=== PATIENT | female | born 1965 ===

== ENCOUNTER 2018-06-20 17:53 | Emergency (ER) | payer BC ==
[2018-06-20] MEDS ORDERED: Sodium Chloride 0.9% 2.5 ML Syringe FLUSH PRN (18:30)
[2018-06-20] MEDS ORDERED: Sodium Chloride 0.9% 10 ML Syringe FLUSH PRN (18:30)
[2018-06-20] MEDS ORDERED: Sodium Chloride 0.9% 1,000 ML IV ONE (18:30)
[2018-06-20] MEDS ORDERED: Hyoscyamine 0.125 MG Tab.SL SL ONE (18:30)
[2018-06-20] MEDS ORDERED: Famotidine 20 MG/2 ML SDV IVPUSH ONE (18:31)
--- NOTE | 2018-06-20 18:38 | EDM.PDOC ---
ED HPI GENERAL MEDICAL PROBLEM - General Chief Complaint: ENT Problem Stated Complaint: TROUBLE SWALLOWING, THROAT SWELLING Time Seen by Provider: 06/20/18 18:19 Source of Information: Reports: Patient History Limitations: Reports: No Limitations - History of Present Illness INITIAL COMMENTS - FREE TEXT/NARRATIVE: History of present illness: []Patient has progressive worsening of her ability to swallow for the last 6 weeks. Patient has not had any vomiting, focal deep breathing abdominal or chest pain. She was seen in [place] emergency room on June 16 when she was picking up her son from college after choking on a milkshake. They did a soft neck CT, an esophagram, CBC, chemistry, sedimentation rate, CRP that showed mild inflammation of her esophagus but no mass or obstruction according to the patient. She was also prescribed omeprazole however did not fill it because she cannot swallow the pill. She followed up with Dr. Pearson this week who has scheduled her for an EGD. Today she tried to eat food and could not tolerate a pea-sized bite of food choking. Review of systems: As per history of present illness and below otherwise all systems reviewed and negative. Past medical history: As per history of present illness and as reviewed below otherwise noncontributory. Surgical history: As per history of present illness and as reviewed below otherwise noncontributory. Social history: No reported history of drug or alcohol abuse. Family history: As per history of present illness and as reviewed below otherwise noncontributory. Physical exam: General: Well developed, well nourished in NAD HEENT: Atraumatic, normocephalic, pupils reactive, negative for conjunctival pallor or scleral icterus, mucous membranes moist, throat clear no erythema or exudate, neck supple, nontender, trachea midline. No neck masses, no stridor Lungs: Clear to auscultation, breath sounds equal bilaterally, chest nontender. Heart: S1S2, regular, negative for clicks, rubs, or JVD. Abdomen: NABS, Soft, nondistended, nontender. Negative for masses or hepatosplenomegaly. Negative for costovertebral tenderness. Pelvis: Stable nontender. Genitourinary: Deferred. Rectal: Deferred. Extremities: Atraumatic, negative for cords or calf pain. Neurovascular unremarkable. Neuro: Awake, alert, oriented. Cranial nerves II through XII unremarkable. Cerebellum unremarkable. Motor and sensory unremarkable throughout. Exam nonfocal. Skin:warm and dry Diagnostics: CBC, chemistry, TSH Therapeutics: IV hydration, Pepcid IV, Levsin ED Course: Improved Impression: Dysphasia Prescriptions: Levsin, Zofran Plan: Keep appointment for EGD as scheduled return if symptoms worsen or change. Definitive disposition and diagnosis as appropriate pending reevaluation and review of above. 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: - Infectious Disease History Infectious Disease History: Reports: Chicken Pox - Past Surgical History GI Surgical History: Reports: Cholecystectomy Female Surgical History: Reports: Hysterectomy Social & Family History - Family History Family Medical History: Noncontributory Cardiac: Reports: GA Other Cardiac Family History: [facility] Oncologic: Reports: Hodgkin's Lymphoma - Tobacco Use Smoking Status *Q: Never Smoker - Caffeine Use Caffeine Use: Reports: Coffee - Recreational Drug Use Recreational Drug Use: No ED ROS ENT - Review of Systems Review Of Systems: ROS reveals no pertinent complaints other than HPI. (History of present illness) ED EXAM, ENT - Physical Exam Exam: See Below (See history of present illness) Course - Vital Signs Last Recorded V/S: Last Vital Signs Temp 98.3 F 06/20/18 18:08 Pulse 65 06/20/18 20:10 Resp 18 06/20/18 20:10 BP 102/54 L 06/20/18 20:10 Pulse Ox 99 06/20/18 20:10 - Orders/Labs/Meds Orders: Active Orders 24 hr Category Date Time Status Saline Lock Insert [OM.PC] Stat Oth 06/20/18 18:30 Ordered Labs: Laboratory Tests 06/20/18 06/20/18 Range/Units 19:00 19:00 WBC 9.85 (4.0-11.0) K/uL RBC 4.39 (4.30-5.90) M/uL Hgb 12.4 (12.0-16.0) g/dL Hct 38.6 (36.0-46.0) % MCV 87.9 (80.0-98.0) fL MCH 28.2 (27.0-32.0) pg MCHC 32.1 (31.0-37.0) g/dL RDW Std Deviation 40.6 (28.0-62.0) fl RDW Coeff of Arnulfo 13 (11.0-15.0) % Plt Count 324 (150-400) K/uL MPV 10.40 (7.40-12.00) fL Neut % (Auto) 72.3 (48.0-80.0) % Lymph % (Auto) 20.6 (16.0-40.0) % [place] % (Auto) 6.6 (0.0-15.0) % Eos % (Auto) 0.3 (0.0-7.0) % Baso % (Auto) 0.2 (0.0-1.5) % Neut # (Auto) 7.1 H (1.4-5.7) K/uL Lymph # (Auto) 2.0 (0.6-2.4) K/uL [place] # (Auto) 0.7 (0.0-0.8) K/uL Eos # (Auto) 0.0 (0.0-0.7) K/uL Baso # (Auto) 0.0 (0.0-0.1) K/uL Nucleated RBC % 0.0 /100WBC Nucleated RBCs # 0 K/uL Sodium 139 (136-145) mmol/L Potassium 4.1 (3.5-5.1) mmol/L Chloride 104 (98-107) mmol/L Carbon Dioxide 23.9 (21.0-32.0) mmol/L BUN 9 (7.0-18.0) mg/dL Creatinine 0.7 (0.6-1.0) mg/dL Est Cr Clr Drug Dosing 90.38 mL/min Estimated GFR (MDRD) > 60.0 ml/min Glucose 98 (74-106) mg/dL Calcium 9.1 (8.5-10.1) mg/dL Total Bilirubin 0.3 (0.2-1.0) mg/dL AST 8 L (15-37) IU/L ALT 11 L (14-63) IU/L Alkaline Phosphatase 74 (46-116) U/L Total Protein 7.1 (6.4-8.2) g/dL Albumin 4.0 (3.4-5.0) g/dL Globulin 3.1 (2.6-4.0) g/dL Albumin/Globulin Ratio 1.3 (0.9-1.6) TSH 3rd Generation 2.32 (0.36-3.74) uIU/mL Meds: Medications Discontinued Medications Generic Name Dose Route Start Last Admin Trade Name Freq PRN Reason Stop Dose Admin Famotidine 20 mg 06/20/18 18:31 06/20/18 18:57 Pepcid IVPUSH 06/20/18 18:32 20 mg ONETIME ONE Administration Hyoscyamine 0.125 mg 06/20/18 18:30 06/20/18 18:57 Hyomax-Sl SL 06/20/18 18:31 0.125 mg ONETIME ONE Administration Sodium Chloride 1,000 mls @ 999 mls/hr 06/20/18 18:30 06/20/18 18:56 Normal Saline IV 06/20/18 19:30 999 mls/hr .Bolus ONE Administration Sodium Chloride 10 ml 06/20/18 18:30 Saline Flush FLUSH ASDIRECTED PRN Keep Vein Open Sodium Chloride 2.5 ml 06/20/18 18:30 Saline Flush FLUSH ASDIRECTED PRN Keep Vein Open Departure - Departure Time of Disposition: 19:32 Disposition: Home, Self-Care 01 Condition: Good Clinical Impression: Esophageal spasm - Discharge Information *PRESCRIPTION DRUG MONITORING PROGRAM REVIEWED*: No *COPY OF PRESCRIPTION DRUG MONITORING REPORT IN PATIENT PRINCESS: No Prescriptions: Hyoscyamine [Hyomax-SL] 0.125 mg SL Q4H PRN #20 tab.sl PRN Reason: Pain Ondansetron [Zofran ODT] 4 mg PO Q6H PRN #20 tab.dis PRN Reason: Nausea Instructions: Esophageal Spasm Referrals: Otf Pearson MD [Primary Care Provider] - Forms: ED Department Discharge Additional Instructions: The following information is given to patients seen in the emergency department who are being discharged to home. This information is to outline your options for follow-up care. We provide all patients seen in our emergency department with a follow-up referral. The need for follow-up, as well as the timing and circumstances, are variable depending upon the specifics of your emergency department visit. If you don't have a primary care physician on staff, we will provide you with a referral. We always advise you to contact your personal physician following an emergency department visit to inform them of the circumstance of the visit and for follow-up with them and/or the need for any referrals to a consulting specialist. The emergency department will also refer you to a specialist when appropriate. This referral assures that you have the opportunity for follow-up care with a specialist. All of these measure are taken in an effort to provide you with optimal care, which includes your follow-up. Under all circumstances we always encourage you to contact your private physician who remains a resource for coordinating your care. When calling for follow-up care, please make the office aware that this follow-up is from your recent emergency room visit. If for any reason you are refused follow-up, please contact the [facility] at and asked to speak to the emergency department charge nurse. Take meds as directed, follow up with your primary care physician, return to ER if symptoms worsen or change. [facility] [address] [place] [id number] - My Orders Last 24 Hours: My Active Orders 06/20/18 18:30 Saline Lock Insert [OM.PC] Stat - Assessment/Plan Last 24 Hours: My Active Orders 06/20/18 18:30 Saline Lock Insert [OM.PC] Stat
[2018-06-20 19:53] LABS: CHLORIDE,CL 104 mmol/L (98-107); SODIUM,NA 139 mmol/L (136-145)
[2018-06-20 20:23] VITALS: BP 102/54
== END 2018-06-20 20:15 | disposition home or self-care (01) ==
LOC: MW.ED 17:53
DX: K22.4 Dyskinesia of esophagus (principal); Z90.49 Acquired absence of other specified parts of digestive tract; Z90.710 Acquired absence of both cervix and uterus
CPT/HCPCS: 36415; 80053; 84443; 85025; 96361; 96374; 99284; A9270; J3490; J7040

== ENCOUNTER 2018-06-27 08:46 | Day surgery (SDC) | payer BC ==
[~2018-06-27 08:46] MED LIST: Lactated Ringers 1,000 ML IV SCH; Lidocaine 2% 5 ML SDV ONE; Propofol 200 MG/20 ML SDV ONE; Sodium Chloride 0.9% 10 ML SDV IV PRN; Sodium Chloride 0.9% 10 ML Syringe FLUSH PRN; Sodium Chloride 0.9% 2.5 ML Syringe FLUSH PRN; fentaNYL 100 MCG/2 ML SDV ONE
[2018-06-27] MEDS ORDERED: Midazolam 1 MG/ML 2 ML SDV ONE (09:35)
--- NOTE | 2018-06-27 09:35 | PCM.PREANE ---
Preanesthetic Assessment - Anesthesia/Transfusion/Family Hx Anesthesia History: Prior Anesthesia Without Reaction Family History of Anesthesia Reaction: No Transfusion History: No Prior Transfusion(s) - Review of Systems General: No Symptoms Pulmonary: No Symptoms Cardiovascular: No Symptoms Gastrointestinal: Difficulty Swallowing Neurological: No Symptoms Other: Reports: None - Physical Assessment NPO Status Date: 06/26/18 O2 Sat by Pulse Oximetry: 99 Respiratory Rate: 16 Vital Signs: Last Vital Signs Temp 97.0 F 06/27/18 09:21 Pulse 72 06/27/18 09:21 Resp 16 06/27/18 09:21 BP 128/66 06/27/18 09:21 Pulse Ox 99 06/27/18 09:21 Height: 5 ft 7 in Weight: 69.4 kg ASA Class: 2 Mental Status: Alert & Oriented x3 Airway Class: Mallampati = 2 Dentition: Reports: Bridge (central maxillary) ROM/Head Extension: Full Lungs: Clear to Auscultation, Normal Respiratory Effort Cardiovascular: Regular Rate, Regular Rhythm - Allergies Allergies/Adverse Reactions: Allergies Allergy/AdvReac Type Severity Reaction Status Date / Time No Known Allergies Allergy Verified 06/22/18 09:46 - Anesthesia Plan Pre-Op Medication Ordered: None - Acknowledgements Anesthesia Type Planned: General Anesthesia Pt an Appropriate Candidate for the Planned Anesthesia: Yes Alternatives and Risks of Anesthesia Discussed w Pt/Guardian: Yes Pt/Guardian Understands and Agrees with Anesthesia Plan: Yes Additional Comments: dysphagia, has only had liquids x 3 weeks, PLAN: ga-nc, possible ett if dilitation planned. 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: Musculoskeletal History: Reports: Fracture Other Musculoskeletal History: hx fx ankle Neurological History: Reports: None Psychiatric History: Reports: None Endocrine/Metabolic History: Reports: None Hematologic History: Reports: None Immunologic History: Reports: None Oncologic (Cancer) History: Reports: None Dermatologic History: Reports: None - Infectious Disease History Infectious Disease History: Reports: Chicken Pox - Past Surgical History Head Surgeries/Procedures: Reports: None HEENT Surgical History: Reports: None Cardiovascular Surgical History: Reports: None Respiratory Surgical History: Reports: None GI Surgical History: Reports: Cholecystectomy, Colonoscopy Female Surgical History: Reports: Hysterectomy Endocrine Surgical History: Reports: None Neurological Surgical History: Reports: None Musculoskeletal Surgical History: Reports: None Oncologic Surgical History: Reports: None Dermatological Surgical History: Reports: None - SUBSTANCE USE Smoking Status *Q: Never Smoker Recreational Drug Use History: No - HOME MEDS Home Medications: Home Meds Hyoscyamine [Hyomax-SL] 0.125 mg SL Q4H PRN #20 tab.sl 06/20/18 [Rx] Ondansetron [Zofran ODT] 4 mg PO Q6H PRN #20 tab.dis 06/20/18 [Rx] Sucralfate [Carafate] 1 dose PO QID 06/22/18 [History] Lansoprazole 30 mg PO DAILY 06/26/18 [History] - CURRENT (IN HOUSE) MEDS Current Meds: Current Medications Lactated Ringer's (Ringers, Lactated) 1,000 mls @ 125 mls/hr IV ASDIRECTED CECILY Last Admin: 06/27/18 09:29 Dose: 125 mls/hr Sodium Chloride (Saline Flush) 10 ml FLUSH ASDIRECTED PRN PRN Reason: Keep Vein Open Sodium Chloride (Saline Flush) 2.5 ml FLUSH ASDIRECTED PRN PRN Reason: Keep Vein Open Sodium Chloride (Normal Saline) 10 ml IV ASDIRECTED PRN PRN Reason: IV Use Discontinued Medications Fentanyl (Sublimaze) Confirm Administered Dose 100 mcg .ROUTE .STK-MED ONE Stop: 06/27/18 08:36 Lidocaine (Xylocaine-Mpf 2%) Confirm Administered Dose 5 ml .ROUTE .STK-MED ONE Stop: 06/27/18 08:35 Propofol (Diprivan 20 Ml) Confirm Administered Dose 400 mg .ROUTE .STK-MED ONE Stop: 06/27/18 08:36
--- NOTE | 2018-06-27 10:58 | PCM.OPNOTE ---
- General Post-Op/Procedure Note Date of Surgery/Procedure: 06/27/18 Operative Procedure(s): Diagnostic EGD Findings: Normal EGD Pre Op Diagnosis: Dysphagia Post-Op Diagnosis: same Anesthesia Technique: MAC Primary Surgeon: Graciela Malave Condition: Good
[2018-06-27 11:40] VITALS: BP 102/54
--- NOTE | 2018-06-27 11:41 | PCM.POSTAN ---
POST ANESTHESIA ASSESSMENT - MENTAL STATUS Mental Status: Alert, Oriented - RESPIRATORY Respiratory Status: Respiratory Rate WNL, Airway Patent, O2 Saturation Stable - CARDIOVASCULAR CV Status: Pulse Rate WNL, Blood Pressure Stable - GASTROINTESTINAL GI Status: No Symptoms - POST OP HYDRATION Hydration Status: Adequate & Stable
--- NOTE | 2018-06-27 16:06 | OR ---
SURGEON: GRACIELA MALAVE MD DATE OF PROCEDURE: 06/27/2018 PREOPERATIVE DIAGNOSIS: Dysphagia. POSTOPERATIVE DIAGNOSES: 1. Dysphagia. 2. Hyperplastic gastric polyp. PROCEDURE PERFORMED: Diagnostic esophagogastroduodenoscopy with biopsy. PRIMARY SURGEON: Graciela Malave MD. ANESTHESIA: MAC. INSTRUMENT USED: Olympus endoscope. EXTENT OF EXAM: To the second portion of duodenum. PREPARATION: Good. LIMITATIONS: None. INDICATION FOR EXAMINATION: The patient is a 52-year-old female who has been experiencing severe dysphagia for the past several weeks. She underwent an esophagram which was normal. Lab work has all been normal up to this point. The decision was made to proceed with diagnostic EGD. I explained the procedure, expected perioperative course, and risks including bleeding, infection, or damage to surrounding structures including perforation. The patient verbalized understanding and wishes to proceed. PROCEDURE IN DETAIL: The patient was brought to the endoscopy suite and placed in a beach chair position. A time-out was completed verifying the patient's name, age, date of , allergies, and procedure to be performed. A bite block was placed in the patient's mouth. Monitored anesthesia care was induced and continuous oxygen was provided via nasal cannula throughout the procedure. After adequate sedation was achieved, a well lubricated endoscope was placed in the patient's mouth and advanced under direct visualization to the second portion of duodenum. This appeared normal and a photograph was taken. The scope was then straightened out and fully withdrawn while examining the color, texture, anatomy, and integrity of the mucosa of the upper GI tract. The duodenum appeared free of pathology, but a biopsy was taken in the duodenal bulb. The scope was brought into the stomach and a photograph was taken of the pylorus as well as the GE junction. Both appeared normal. Upon inspection of the gastric mucosa, the patient appeared to have hyperplastic gastric polyps along the body of the stomach. One of these was removed using a cold biopsy forceps and sent to Pathology labeled as hyperplastic gastric polyp. Biopsies were taken of the gastric antrum, body, and fundus, and sent for histologic review and H. pylori testing. The scope was then brought into the distal esophagus and a photograph was taken of the Z-line. This appeared normal. A biopsy was taken of the esophageal mucosa about 1 cm above the Z-line. The remainder of the esophageal mucosa was free of any signs of inflammation or ulceration. The scope was removed and this procedure was terminated. The patient tolerated the procedure well and was taken to the PACU in stable condition. ENDOSCOPIC DIAGNOSIS: Hyperplastic gastric polyps. RECOMMENDATIONS: Followup in clinic in 2 weeks. In the meantime, I will refer the patient to a in home aide for manometric testing for possible esophageal spasm. ANNIE VELÁSQUEZ /[id number]
== END 2018-06-27 12:00 | disposition home or self-care (01) ==
LOC: MW.SDS 08:46
PROVIDERS: ATTEND Surgery
DX: K29.50 Unspecified chronic gastritis without bleeding (principal); K31.7 Polyp of stomach and duodenum; K31.89 Other diseases of stomach and duodenum; K22.8 Other specified diseases of esophagus; Z79.899 Other long term (current) drug therapy
CPT/HCPCS: 43239; J2001; J2250; J2704; J3010; J7120; 00731; 88305; 88312